=== PATIENT | male | born 1980 | race Caucasian/White ===

== ENCOUNTER 2024-07-04 12:39 | Emergency (ER) | payer OTHER ==
[~2024-07-04] VITALS: Ht 185.4 cm; Wt 175.5 kg
[2024-07-04 12:46] VITALS: BP_SYST 159; PULSE 107; RESP 18; TEMP 97; O2SAT 96
[2024-07-04] MEDS: HYDROmorphone 1 MG/ML INJ. CARTRIDGE IVP ONE ×2 (13:57→17:31)
[2024-07-04 17:22] VITALS: BP_SYST 141; PULSE 104; RESP 17; TEMP 98.2; O2SAT 95
== END 2024-07-04 17:35 | disposition short-term general hospital (02) ==
LOC: SED 12:39
DX: S82.432A Displaced oblique fracture of shaft of left fibula, initial encounter for closed fracture (principal); S82.232A Displaced oblique fracture of shaft of left tibia, initial encounter for closed fracture; S82.65XA Nondisplaced fracture of lateral malleolus of left fibula, initial encounter for closed fracture; W18.39XA Other fall on same level, initial encounter; Y93.89 Activity, other specified; Y92.89 Other specified places as the place of occurrence of the external cause; Y99.8 Other external cause status
CPT/HCPCS: 27752; 73590; 73600; 73700; 99285; 96376; 96374; J1170